=== PATIENT | female | born 1970 | race Caucasian/White ===

== ENCOUNTER → 2019-07-28 | Outpatient (CLI) | payer OTHER ==
--- NOTE | 2019-07-29 11:59 | MM ---
Reason for exam: screening (asymptomatic). Last mammogram was performed 4 years and 8 months ago. History: Patient is postmenopausal. Family history of breast cancer in maternal grandmother at age 88. Took hormonal contraceptives for 9 years beginning at age 16. Physical Findings: A clinical breast exam by your physician is recommended on an annual basis and results should be correlated with mammographic findings. MG 3D Screening Mammo W/Cad Bilateral CC and MLO view(s) were taken. Prior study comparison: November 18, 2014, bilateral MG screening mammo w CAD. February 17, 2013, bilateral digital screening mammo w/CAD. The breast tissue is heterogeneously dense. This may lower the sensitivity of mammography. Benign appearing calcifications in the right breast. No suspicious abnormality. No significant changes when compared with prior studies. ASSESSMENT: Benign, BI-RAD 2 RECOMMENDATION: Routine screening mammogram of both breasts in 1 year.
== END | disposition home or self-care (01) ==
LOC: RADMAMWWP 10:59
PROVIDERS: ATTEND Family Medicine
DX: Z80.3 Family history of malignant neoplasm of breast (principal)
CPT/HCPCS: 77063; 77067

== ENCOUNTER 2022-04-07 20:38 | Observation (INO) | payer OTHER ==
--- NOTE | 2022-04-07 21:16 | ED ---
Chest Pain HPI - General Chief Complaint: Chest Pain Stated Complaint: Chest Pain Source: patient, RN notes reviewed, old records reviewed Mode of arrival: wheelchair Limitations: no limitations - History of Present Illness Initial Comments: This 52-year-old female DF for evaluation. Patient presents today for evaluation of chest pain. Patient does have mildly elevated blood pressure hydrochlorothiazide, elevated cholesterol no medications. Nonsmoker with history of family heart disease. Patient presents today under increased stress stressors family and job. Patient states legs maybe mildly increased swollen from normal did recently take a vacation or sick and increase or swellin. Patient currently having some tightness in the left side of her chest no significant shortness of breath occasional sweating symptoms for a few days now with no modifying factors. Patient continues tightness here in the emergency department. Patient has had prior stress test and echo about 3 years ago MD Complaint: chest pain -: days(s) Onset: during rest, during exertion Pain Location: left chest Pain Radiation: none Severity: moderate Severity scale (1-10): 4 Quality: tightness Consistency: constant Improves With: nothing Worsens With: nothing Anginal Symptoms: diaphoresis, dyspnea Other Symptoms: palpitations Treatments Prior to Arrival: none - Related Data Allergies Allergy/AdvReac Type Severity Reaction Status Date / Time meperidine [From Demerol] Allergy Rash/Hives Verified 04/07/22 20:44 Penicillins AdvReac Rash/Hives Verified 04/07/22 20:44 Review of Systems ROS Statement: Those systems with pertinent positive or pertinent negative responses have been documented in the HPI. ROS Other: All systems not noted in ROS Statement are negative. EKG Findings - EKG Comments: EKG Findings:: EKG shows nsr 77 TX 187 QRS 80 QTc 401 Past Medical History Past Medical History: Hypertension History of Any Multi-Drug Resistant Organisms: None Reported Past Surgical History: Section, Hysterectomy, Tonsillectomy Past Psychological History: No Psychological Hx Reported Smoking Status: Never smoker Past Alcohol Use History: None Reported Past Drug Use History: None Reported General Exam Limitations: no limitations General appearance: alert, in no apparent distress Head exam: Present: atraumatic, normocephalic, normal inspection Eye exam: Present: normal appearance, PERRL, EOMI. Absent: scleral icterus, conjunctival injection, periorbital swelling ENT exam: Present: normal exam, mucous membranes moist Neck exam: Present: normal inspection. Absent: tenderness, meningismus, lymphadenopathy Respiratory exam: Present: normal lung sounds bilaterally. Absent: respiratory distress, wheezes, rales, rhonchi, stridor Cardiovascular Exam: Present: regular rate, normal rhythm, normal heart sounds. Absent: systolic murmur, diastolic murmur, rubs, gallop, clicks GI/Abdominal exam: Present: soft, normal bowel sounds. Absent: distended, tenderness, guarding, rebound, rigid Extremities exam: Present: normal inspection, full ROM, normal capillary refill. Absent: tenderness, pedal edema, joint swelling, calf tenderness Back exam: Present: normal inspection Neurological exam: Present: alert, oriented X3, CN II-XII intact Psychiatric exam: Present: normal affect, normal mood Skin exam: Present: warm, dry, intact, normal color. Absent: rash Course Vital Signs 04/07/22 04/07/22 20:44 21:41 Temperature 97.7 F Pulse Rate 86 70 Respiratory 16 16 Rate Blood Pressure 131/81 136/82 O2 Sat by Pulse 97 98 Oximetry - Reevaluation(s) Reevaluation #1: 04/07/22 21:49 Medical record is reviewed Reevaluation #2: 04/07/22 22:41 Patient still having episodic chest pain here in the ER, patient is concerned about her heart and her continued chest pain Reevaluation #3: 04/07/22 22:41 Patient informed results and questions are answered - Consultations Consultation #1: Spoke with admitting physicians who agree to admit this patient Chest Pain MDM - MDM 52 female DF for evaluation, patient Dese for evaluation of chest pain history of high blood pressure family history of heart disease, patient will be admitted for cardiac observation Disposition Clinical Impression: Chest pain, Hypertension Disposition: ADMITTED IP TO THIS HOSP Condition: Undetermined Is patient prescribed a controlled substance at d/c from ED?: No Referrals: Edyta Reyes DO [Primary Care Provider] - 1-2 days
[2022-04-07 21:28] LABS: Basophils # (A) 0.1 k/uL (0-0.2); Basophils % (A) 1 %; Eosinophils # (A) 0.3 k/uL (0-0.7); Eosinophils % (A) 3 %; HCT 40.5 % (34.0-46.0); HGB 13.6 gm/dL (11.4-16.0); Lymphocytes # (A) 3.9 k/uL (1.0-4.8); Lymphocytes % (A) 39 %; MCH 29.7 pg (25.0-35.0); MCHC 33.7 g/dL (31.0-37.0); Monocytes # (A) 0.5 k/uL (0-1.0); Monocytes % (A) 5 %; Neutrophils # (A) 5.1 k/uL (1.3-7.7); Neutrophils % (A) 51 %; Platelet Count 331 k/uL (150-450); RDW 12.8 % (11.5-15.5); WBC 9.9 k/uL (3.8-10.6)
--- NOTE | 2022-04-07 21:35 | XR ---
EXAMINATION TYPE: XR chest 2V DATE OF EXAM: 04/07/2022 COMPARISON: NONE HISTORY: Chest pain TECHNIQUE: 2 view FINDINGS: Heart is normal. Lungs are clear of consolidation. There is mild subsegmental atelectasis i n the lingula left upper lobe. There are no hilar masses. There is no pleural effusion. IMPRESSION: Subsegmental atelectasis. Normal heart.
[2022-04-07 21:42] LABS: INR 0.9 (<1.2)
[2022-04-07 22:07] LABS: Albumin 4.7 g/dL (3.5-5.0); Calcium 9.9 mg/dL (8.4-10.2); Magnesium 1.8 mg/dL (1.6-2.3); Total Bilirubin 0.3 mg/dL (0.2-1.3); Total Protein 7.4 g/dL (6.3-8.2)
[2022-04-07] MEDS ORDERED: POTASSIUM CHLORIDE ER 20 MEQ TAB.ER PO STA ×2 (22:26)
[2022-04-07] MEDS ORDERED: ONDANSETRON 4 MG/2 ML VIAL IVP PRN (22:37)
[2022-04-07] MEDS ORDERED: NALOXONE 0.4 MG/ML 1 ML VIAL IV PRN (22:37)
[2022-04-07] MEDS ORDERED: MORPHINE SULFATE 4 MG/ML SYRINGE IV PRN (22:37)
[2022-04-07] MEDS ORDERED: SODIUM CHLORIDE 0.9% 1,000 ML IV SCH (22:45)
[2022-04-08] MEDS ORDERED: ALBUTEROL NEBULIZED 2.5 MG/3 ML INHALATION PRN (02:40)
[2022-04-08] MEDS ORDERED: ACETAMINOPHEN TAB 325 MG TAB PO PRN (02:41)
[2022-04-08 03:18] VITALS: RESP 16
[2022-04-08 05:51] LABS: African American GFR (CKD) 89 (>60 ml/min/1.73 sqM); Anion Gap 4 mmol/L; Blood Urea Nitrogen 14 mg/dL (7-17); Calcium 9.2 mg/dL (8.4-10.2); Carbon Dioxide 30 mmol/L (22-30); Chloride 105 mmol/L (98-107); Glucose 101 mg/dL (74-99); Non-African American GFR(CKD) 77 (>60 ml/min/1.73 sqM); Potassium 3.8 mmol/L (3.5-5.1); Sodium 139 mmol/L (137-145)
[2022-04-08] MEDS ORDERED: PANTOPRAZOLE 40 MG TABLET PO SCH (07:30)
[2022-04-08 07:41] VITALS: BP 107/68; PULSE 64; TEMP 97.9
[2022-04-08] MEDS ORDERED: CHOLECALCIFEROL 25 MCG (1000 IU) TABLET PO SCH (09:00)
[2022-04-08] MEDS ORDERED: LORATADINE 10 MG TAB PO SCH (09:00)
[2022-04-08] MEDS ORDERED: NON FORMULARY DRUG (Potassium Gluconate [Potassium Gluconate Er] 99 MG Tablet) PO SCH (09:00)
--- NOTE | 2022-04-08 10:23 | P.CRDCN ---
History of Present Illness History of present illness: HISTORY OF PRESENTING ILLNESS Patient is a pleasant 52-year-old female with a history of hypertension, family history of CAD/A. fib who presents secondary to chest pain. She admits to chest pain has been happening off and on over the last year however did have a somewhat more significant episode and talk to family members and family members talked her into coming to the hospital. She admits normally the chest pains last for anywhere from 30 seconds up to a few minutes. Usually does not occur with any exertion. No other significant symptoms of shortness breath nausea or diaphoresis. She reports having a echo and stress echo in the office with Dr. Cole approximately 3 years ago. Her chest pain had improved by the time she got the emergency department. EKG shows normal sinus rhythm, normal axis, nonspecific T-wave inversions in lead 3 as well as T-wave flattening in the ant erolateral leads. Troponins were noted to be normal 3 REVIEW OF SYSTEMS At the time of my exam: CONSTITUTIONAL: Denies fever or chills. CARDIOVASCULAR: + chest pain, no shortness of breath, orthopnea, PND or palpitations. RESPIRATORY: Denies cough. GASTROINTESTINAL: Denies abdominal pain, diarrhea, constipation, nausea or vomiting. MUSCULOSKELETAL: Denies myalgias. NEUROLOGIC: Denies numbness, tingling or weakness. ENDOCRINE: Denies fatigue, weight change, polydipsia or polyurina. GENITOURINARY: Denies burning, hematuria or urgency with micturation. HEMATOLOGIC: Denies history of anemia or bleeding. PHYSICAL EXAMINATION Vital signs reviewed. CONSTITUTIONAL: No apparent distress. HEENT: Head is normocephalic. Pupils are equal, round. Sclerae anicteric. Mucous membranes of the mouth are moist. No JVD. No carotid bruit. CHEST EXAMINATION: Lungs are clear to auscultation. No chest wall tenderness is noted on palpation or with deep breathing. HEART EXAMINATION: Regular rate and rhythm. S1, S2 heard. No murmurs, gallops or rub. ABDOMEN: Soft, nontender. Positive bowel sounds. EXTREMITIES: 2+ peripheral pulses, no lower extremity edema and no calf tenderness. NEUROLOGIC EXAMINATION: Patient is awake, alert and oriented x3. ASSESSMENT 1. Atypical chest pain occurring off and on over the last year, troponin is normal 3 ACS ruled out 2. Hypertension 3. Family history of CAD 4. Anxiety 5. Abnormal EKG PLAN Patient with atypical symptoms and troponin is normal 3. Symptoms have also been going on for approximately a year. Check 2-D echo however if this is not able to be performed today patient may be discharged home and workup may be performed in office with possible stress test in office. F/u in office within a week. Past Medical History Past Medical History: Hypertension History of Any Multi-Drug Resistant Organisms: None Reported Past Surgical History: Section, Hysterectomy, Tonsillectomy Past Psychological History: No Psychological Hx Reported Smoking Status: Never smoker Past Alcohol Use History: None Reported Past Drug Use History: None Reported Medications and Allergies Home Medications Medication Instructions Recorded Confirmed Type Albuterol Sulfate [Proair Hfa] 2 puff INHALATION RT-QID PRN 04/07/22 04/07/22 History Cetirizine HCl [Zyrtec] 10 mg PO DAILY 04/07/22 04/07/22 History Cholecalciferol [Vitamin D3 (25 50 mcg PO DAILY 04/07/22 04/07/22 History Mcg = 1000 Iu)] Esomeprazole Magnesium [NexIUM 20 mg PO DAILY 04/07/22 04/07/22 History 24Hr] Potassium Gluconate [Potassium 99 mg PO DAILY 04/07/22 04/07/22 History Gluconate ER] hydroCHLOROthiazide [Hydrodiuril] 25 mg PO DAILY 04/07/22 04/07/22 History Allergies Allergy/AdvReac Type Severity Reaction Status Date / Time Penicillins Allergy Rash/Hives Verified 04/07/22 22:51 meperidine [From Demerol] AdvReac Nausea & Verified 04/07/22 22:51 Vomiting Physical Exam Vitals: Vital Signs Temp Pulse Pulse Resp BP BP Pulse Ox 04/08/22 07:45 16 04/08/22 07:23 97.9 F 64 16 107/68 97 04/08/22 02:13 98.2 F 77 16 101/59 93 L 04/07/22 23:31 97.9 F 62 17 110/63 96 04/07/22 23:03 97.6 F 72 15 134/80 96 04/07/22 21:41 70 16 136/82 98 04/07/22 20:44 97.7 F 86 16 131/81 97 Intake and Output 04/07/22 04/08/22 04/08/22 22:59 06:59 14:59 Other: Voiding Method Toilet # Voids 1 Weight 108.862 kg 108.862 kg Results 04/07/22 21:15 04/08/22 04:32 Cardiac Enzymes 04/07/22 04/07/22 04/08/22 Range/Units 21:15 21:15 00:33 AST 36 (14-36) U/L Troponin I <0.012 <0.012 (0.000-0.034) ng/mL 04/08/22 Range/Units 04:31 AST (14-36) U/L Troponin I <0.012 (0.000-0.034) ng/mL Coagulation 04/07/22 Range/Units 21:15 PT 10.0 (9.0-12.0) sec APTT 24.0 (22.0-30.0) sec CBC 04/07/22 Range/Units 21:15 WBC 9.9 (3.8-10.6) k/uL RBC 4.60 (3.80-5.40) m/uL Hgb 13.6 (11.4-16.0) gm/dL Hct 40.5 (34.0-46.0) % Plt Count 331 (150-450) k/uL Comprehensive Metabolic Panel 04/07/22 04/08/22 Range/Units 21:15 04:32 Sodium 139 139 (137-145) mmol/L Potassium 3.0 L 3.8 (3.5-5.1) mmol/L Chloride 101 105 (98-107) mmol/L Carbon Dioxide 29 30 (22-30) mmol/L BUN 12 14 (7-17) mg/dL Creatinine 0.87 0.87 (0.52-1.04) mg/dL Glucose 104 H 101 H (74-99) mg/dL Calcium 9.9 9.2 (8.4-10.2) mg/dL AST 36 (14-36) U/L ALT 35 H (4-34) U/L Alkaline Phosphatase 64 (38-126) U/L Total Protein 7.4 (6.3-8.2) g/dL Albumin 4.7 (3.5-5.0) g/dL Current Medications Generic Name Dose Route Start Last Admin Trade Name Freq PRN Reason Stop Dose Admin Acetaminophen 650 mg 04/08/22 02:41 Acetaminophen Tab 325 Mg Tab PO Q6HR PRN Fever and/ or Pain Albuterol Sulfate 2.5 mg 04/08/22 02:40 Albuterol Nebulized 2.5 Mg/3 Ml INHALATION RT-QID PRN Shortness Of Breath Cholecalciferol 50 mcg 04/08/22 09:00 04/08/22 07:44 Cholecalciferol 25 Mcg (1000 Iu) Tablet PO 50 mcg DAILY MAITE Administration Sodium Chloride 1,000 mls @ 20 mls/hr 04/07/22 22:45 04/07/22 23:05 Saline 0.9% IV 20 mls/hr .Q24H MAITE Administration Loratadine 10 mg 04/08/22 09:00 04/08/22 07:45 Loratadine 10 Mg Tab PO 10 mg DAILY MAITE Administration Naloxone HCl 0.2 mg 04/07/22 22:37 Naloxone 0.4 Mg/Ml 1 Ml Vial IV Q2M PRN Opioid Reversal Ondansetron HCl 4 mg 04/07/22 22:37 Ondansetron 4 Mg/2 Ml Vial IVP Q8HR PRN Nausea And Vomiting Pantoprazole Sodium 40 mg 04/08/22 07:30 04/08/22 07:44 Pantoprazole 40 Mg Tablet PO 40 mg [id number] MAITE Administration Intake and Output 04/07/22 04/08/22 04/08/22 22:59 06:59 14:59 Other: Voiding Method Toilet # Voids 1 Weight 108.862 kg 108.862 kg 04/07/22 21:15 04/08/22 04:32
--- NOTE | 2022-04-08 11:13 | CA ---
Transthoracic Echo Report Name: Mireya Chu Age: 52 Gender: F : 1970 Exam Date: 04/08/2022 10:52 Exam Location: [facility] Ht (in): 62 Wt (lb): 240 Ordering Physician: Timi Dee DO ([email or web address]) Attending/Referring Phys: Cotton Stomper Cony Long RDCS Procedure CPT: Indications: re: LV function Cardiac Hx: Technical Quality: Fair Contrast 1: Total Dose (mL): Contrast 2: Total Dose (mL): MEASUREMENTS (Male / Female) Normal Values 2D ECHO LV Diastolic Diameter PLAX 2.9 cm 4.2 - 5.9 / 3.9 - 5.3 cm LV Systolic Diameter PLAX 1.5 cm IVS Diastolic Thickness 1.1 cm 0.6 - 1.0 / 0.6 - 0.9 cm LVPW Diastolic Thickness 1.2 cm 0.6 - 1.0 / 0.6 - 0.9 cm LV Relative Wall Thickness 0.8 RV Internal Dim ED PLAX 2.5 cm M-MODE Aortic Root Diameter MM 3.0 cm LA Systolic Diameter MM 3.3 cm LA Ao Ratio MM 1.1 MV E Point Septal Separation 1.0 cm AV Cusp Separation MM 2.0 cm DOPPLER AV Peak Velocity 89.6 cm/s AV Peak Gradient 3.2 mmHg MV Area PHT 3.3 cm??? Mitral E Point Velocity 72.3 cm/s Mitral A Point Velocity 91.7 cm/s Mitral E to A Ratio 0.8 MV Deceleration Time 232.7 ms TR Peak Velocity 139.6 cm/s TR Peak Gradient 7.8 mmHg Right Ventricular Systolic Press 12.8 mmHg FINDINGS Left Ventricle Mildly increased septal wall thickness. Mildly increased posterior wall thickness. Left ventricular ejection fraction is estimated at 55-60 %. Left ventricular cavity size normal. Right Ventricle The right ventricle is normal in size and function. Right Atrium The right atrium is normal in size. Left Atrium The left atrium is normal in size. Mitral Valve Structurally normal mitral valve without significant stenosis or prolapse. There is trace mitral regurgitation. Aortic Valve Structurally normal aortic valve without significant sclerosis or stenosis. There is no aortic regurgitation. Tricuspid Valve Structurally normal tricuspid valve without significant stenosis. Pulmonary artery systolic pressure is normal. Trace tricuspid regurgitation. Pulmonic Valve Structurally normal pulmonic valve without significant stenosis. There is no pulmonic regurgitation. Pericardium Normal pericardium without effusion. Aorta Normal aortic root dimension. CONCLUSIONS Normal left ventricular ejection fraction 55-60% Trace mitral regurgitation Normal RVSP No pericardial effusion Previewed by: Dr. Timi Dee DO (Electronically Signed) Final Date: 08 April 2022 11:11
--- NOTE | 2022-04-08 13:10 | P.HPIM ---
History of Present Illness H&P Date: 04/08/22 This is a 52-year-old female presents for hospital with concern for chest pain. She states that the pain is midsternal with radiation into the left shoulder and jaw this has been on and off for the last 3 years this seemed to become worse after jumping on a trampoline last week which prompted her family to encourage patient to come to the for evaluation. Currently she states chest pain has improved. Patient follows with Dr. Edyta Reyes the primary care setting, chronic conditions include hypertension. On admission potassium level found to be 3.0. She does have hydrochlorothiazide at home for blood pressure and states she has had to take potassium supplementation in the past. She follows with Dr Cole in the office has not been in to see him since [facility]. She had an echo stress about 3 years ago and states she was told at that time she had a mild FL. Chest x-ray showing subsegmental atelectasis in the left upper lobe. EKG showing sinus rhythm heart rate 77, QT interval 401. Blood count is unremarkable, sodium 139, potassium 3.8, blood glucose 101. Troponin level has been negative 3. Patient is afebrile, heart rate 64, blood pressure 107/68, 97% room air. Patient is admitted in observation, and is pending evaluation by cardiology. REVIEW OF SYSTEMS: CONSTITUTIONAL: No fever, no malaise, no fatigue. HEENT: No recent visual problems or hearing problems. Denied any sore throat. CARDIOVASCULAR: No chest pain, orthopnea, PND, no palpitations, no syncope. Mild peripheral edema. PULMONARY: No shortness of breath, no cough, no hemoptysis. GASTROINTESTINAL: No diarrhea, no nausea, no vomiting, no abdominal pain. NEUROLOGICAL: No headaches, no weakness, no numbness. HEMATOLOGICAL: Denies any bleeding or petechiae. GENITOURINARY: Denies any burning micturition, frequency, or urgency. MUSCULOSKELETAL/RHEUMATOLOGICAL: Denies any joint pain, swelling, or any muscle pain. ENDOCRINE: Denies any polyuria or polydipsia. The rest of the 14-point review of systems is negative. PHYSICAL EXAMINATION: GENERAL: The patient is alert and oriented x3, not in any acute distress. Well developed, well nourished. HEENT: Pupils are round and equally reacting to light. EOMI. No scleral icterus. No conjunctival pallor. Normocephalic, atraumatic. No pharyngeal erythema. No thyromegaly. CARDIOVASCULAR: S1 and S2 present. No murmurs, rubs, or gallops. PULMONARY: Chest is clear to auscultation, no wheezing or crackles. ABDOMEN: Soft, nontender, nondistended, normoactive bowel sounds. No palpable organomegaly. MUSCULOSKELETAL: No joint swelling or deformity. EXTREMITIES: No cyanosis, clubbing, or pedal edema. NEUROLOGICAL: Gross neurological examination did not reveal any focal deficits. SKIN: No rashes. Assessment and plan Assessment Chest pain rule out ACS pending cardiology consultation History hypertension patient is currently normotensive Hypokalemia most likely from medication effect has resolved with oral supplementation GI prophylaxis DVT prophylaxis Full Code Plan Pending cardiology consultation Echocardiogram pending Appropriate home medications have been resumed Follow up potassium level outpatient The impression and plan of care has been dictated by Ruma Toussaint Nurse Practitioner as directed. Dr. Main MD I have performed a history and physical examination and medical decision making of this patient, discussed the same with the dictator, and agree with the dictators assessment and plan as written, documented as a scribe. Based on total visit time, I have performed more than 50% of this visit. Past Medical History Past Medical History: Hypertension History of Any Multi-Drug Resistant Organisms: None Reported Past Surgical History: Section, Hysterectomy, Tonsillectomy Past Psychological History: No Psychological Hx Reported Smoking Status: Never smoker Past Alcohol Use History: None Reported Past Drug Use History: None Reported Medications and Allergies Home Medications Medication Instructions Recorded Confirmed Type Albuterol Sulfate [Proair Hfa] 2 puff INHALATION RT-QID PRN 04/07/22 04/07/22 History Cetirizine HCl [Zyrtec] 10 mg PO DAILY 04/07/22 04/07/22 History Cholecalciferol [Vitamin D3 (25 50 mcg PO DAILY 04/07/22 04/07/22 History Mcg = 1000 Iu)] Esomeprazole Magnesium [NexIUM 20 mg PO DAILY 04/07/22 04/07/22 History 24Hr] Potassium Gluconate [Potassium 99 mg PO DAILY 04/07/22 04/07/22 History Gluconate ER] hydroCHLOROthiazide [Hydrodiuril] 25 mg PO DAILY 04/07/22 04/07/22 History Allergies Allergy/AdvReac Type Severity Reaction Status Date / Time Penicillins Allergy Rash/Hives Verified 04/07/22 22:51 meperidine [From Demerol] AdvReac Nausea & Verified 04/07/22 22:51 Vomiting Physical Exam Vitals: Vital Signs Temp Pulse Pulse Resp BP BP Pulse Ox 04/08/22 07:45 16 04/08/22 07:23 97.9 F 64 16 107/68 97 04/08/22 02:13 98.2 F 77 16 101/59 93 L 04/07/22 23:31 97.9 F 62 17 110/63 96 04/07/22 23:03 97.6 F 72 15 134/80 96 04/07/22 21:41 70 16 136/82 98 04/07/22 20:44 97.7 F 86 16 131/81 97 Intake and Output 04/07/22 04/08/22 04/08/22 22:59 06:59 14:59 Other: Voiding Method Toilet # Voids 1 Weight 108.862 kg 108.862 kg Results CBC & Chem 7: 04/07/22 21:15 04/08/22 04:32 Labs: Abnormal Lab Results - Last 24 Hours (Table) 04/07/22 04/08/22 Range/Units 21:15 04:32 Potassium 3.0 L (3.5-5.1) mmol/L Glucose 104 H 101 H (74-99) mg/dL ALT 35 H (4-34) U/L Thrombosis Risk Factor Assmnt - Choose All That Apply Any of the Below Risk Factors Present?: Yes Each Factor Represents 1 point: Age 41-60 years Other Risk Factors: No Thrombosis Risk Factor Assessment Total Risk Factor Score: 1 Thrombosis Risk Factor Assessment Level: Low Risk Assessment and Plan Time with Patient: Less than 30
--- NOTE | 2022-04-08 13:14 | P.DS ---
Providers Date of admission: 04/07/22 22:37 Attending physician: Terry Perez Consults: 04/07/22 22:37 Consult Physician Routine Consulting Provider: Michael Cole Consult Reason/Comments: known Do you want consulting provider notified?: Yes Primary care physician: Edyta Reyes [facility] Course: Echocardiogram has been completed showing an EF of 55-60% with trace mitral regurgitation, no pericardial effusion. Recommend following up with cardiology office 1-2 weeks and following with primary care. Recommended outpatient lipid panel. Labs given for repeat BMP in 2-3 days outpatient. Please see medical H&P for additional information. Patient Condition at Discharge: Stable Plan - Discharge Summary Discharge Rx Participant: No New Discharge Prescriptions: Continue Cetirizine HCl [Zyrtec] 10 mg PO DAILY Esomeprazole Magnesium [NexIUM 24Hr] 20 mg PO DAILY Cholecalciferol [Vitamin D3 (25 Mcg = 1000 Iu)] 50 mcg PO DAILY hydroCHLOROthiazide [Hydrodiuril] 25 mg PO DAILY Albuterol Sulfate [Proair Hfa] 2 puff INHALATION RT-QID PRN PRN Reason: Shortness Of Breath Potassium Gluconate [Potassium Gluconate ER] 99 mg PO DAILY Discharge Medication List Albuterol Sulfate [Proair Hfa] 2 puff INHALATION RT-QID PRN 04/07/22 [History] Cetirizine HCl [Zyrtec] 10 mg PO DAILY 04/07/22 [History] Cholecalciferol [Vitamin D3 (25 Mcg = 1000 Iu)] 50 mcg PO DAILY 04/07/22 [History] Esomeprazole Magnesium [NexIUM 24Hr] 20 mg PO DAILY 04/07/22 [History] Potassium Gluconate [Potassium Gluconate ER] 99 mg PO DAILY 04/07/22 [History] hydroCHLOROthiazide [Hydrodiuril] 25 mg PO DAILY 04/07/22 [History] Follow up Appointment(s)/Referral(s): Michael Cole MD [STAFF PHYSICIAN] - 2 Weeks Edyta Reyes DO [Primary Care Provider] - 1-2 days Ambulatory/Diagnostic Orders: Basic Metabolic Panel [LAB.AMB] Time Frame: 3 Days, Location: None Selected Patient Instructions/Handouts: Heart Healthy Diet (DC) Activity/Diet/Wound Care/Special Instructions: Monitor blood pressure daily at home and keep log for follow up appointment. Recommend wearing compression stockings during day. Monitor sodium intake Discharge Disposition: HOME SELF-CARE
== END 2022-04-08 14:40 | disposition home or self-care (01) ==
LOC: EC 20:38 → 6NMEDSUR 22:37
PROVIDERS: ADMIT Hospitalist; ATTEND Hospitalist
DX: R07.89 Other chest pain (principal); R61 Generalized hyperhidrosis; R06.00 Dyspnea, unspecified; R00.2 Palpitations; J98.11 Atelectasis; E87.6 Hypokalemia; F41.9 Anxiety disorder, unspecified; R94.31 Abnormal electrocardiogram [ECG] [EKG]; I10 Essential (primary) hypertension; I25.2 Old myocardial infarction; E78.00 Pure hypercholesterolemia, unspecified; Z63.79 Other stressful life events affecting family and household; Z79.899 Other long term (current) drug therapy; Z88.0 Allergy status to penicillin; Z88.8 Allergy status to other drugs, medicaments and biological substances; Z90.710 Acquired absence of both cervix and uterus; Z82.49 Family history of ischemic heart disease and other diseases of the circulatory system
CPT/HCPCS: 99285; 36415; 93005; 93306; 80053; 80048; 83735; 84484 ×2; 85025; 85610; 85730; 71046; G0378 ×2